=== PATIENT | female | born 1950 | race American Indian/Alaskan Native ===

== ENCOUNTER 2019-05-19 07:14 | Day surgery (SDC) | payer MEDICARE ==
[2019-05-19] MEDS ORDERED: ECOTRIN PO NR (08:01)
[2019-05-19 08:49] LABS: Basophils % (Auto) 0.6 % (0.0-1.8); Eosinophils # (Auto) 0.2 K/mm3 (0.0-0.4); Eosinophils % (Auto) 3.4 % (0.0-4.3); Hematocrit 38.5 % (30.3-42.9); Hemoglobin 13.5 gm/dl (10.1-14.3); Lymphocytes % (Auto) 30.3 % (13.4-35.0); Mean Corpuscular HGB Conc 35 % (30-34); Mean Corpuscular Volume 95 fl (79-97); Monocytes # (Auto) 0.6 K/mm3 (0.0-0.8); Monocytes % (Auto) 8.9 % (0.0-7.3); Platelet Count 264 K/mm3 (140-440); Red Blood Count 4.06 M/mm3 (3.65-5.03); Red Cell Distribution Width 13.1 % (13.2-15.2)
[2019-05-19] MEDS ORDERED: NACL 0.9% 500 ML 500 ML IV SCH (09:00)
[2019-05-19 09:02] LABS: INR 1.04 (0.87-1.13)
[2019-05-19 09:17] LABS: BUN/Creatinine Ratio TNR; Blood Urea Nitrogen TNR mg/dL (7-17); Calcium TNR mg/dL (8.4-10.2); Hemolysis Index TNR
[2019-05-19] MEDS ORDERED: HEPARIN 10,000 UNITS/10 ML ONE (09:31)
[2019-05-19] MEDS ORDERED: HEPARIN/NS 5000 UNIT/500ML(CATH LAB) 1,000 ML IR ONE (09:31)
[2019-05-19] MEDS ORDERED: NITROGLYCERIN SYRINGE 3 ML ONE (09:32)
[2019-05-19] MEDS ORDERED: CALAN ONE (09:32)
[2019-05-19 10:09] LABS: BUN/Creatinine Ratio 21; Blood Urea Nitrogen 15 mg/dL (7-17); Calcium 9.6 mg/dL (8.4-10.2); Hemolysis Index 51
[2019-05-19] MEDS: VERSED ONE ×2 (11:03→11:09)
[2019-05-19] MEDS: SUBLIMAZE ONE ×2 (11:03→11:09)
[2019-05-19] MEDS: XYLOCAINE 2% INFILTRATI ONE ×2 (11:04→11:12)
--- NOTE | 2019-05-19 12:19 | Cardiac Catherization Report ---
ATTENDING PHYSICIAN: Shreyas Fitzgerald M.D. PROCEDURES: 1. Left heart catheterization. 2. Left ventriculogram. COMPLICATIONS: None. ESTIMATED BLOOD LOSS: Less than 30 mL. ESTIMATED CONTRAST USED: 80 mL. SEDATION: IV conscious sedation with Versed and fentanyl. INDICATIONS FOR PROCEDURE: Unstable angina. PROCEDURE IN DETAIL: The patient was brought to the cardiac catheterization lab in usual fasting state. The patient was prepped and draped in the usual sterile fashion. A 2 mL of 1% lidocaine were injected around the right radial artery and a 6-Chadian sheath was placed into the right radial artery via modified Seldinger technique. The right radial artery was attempted to be used, but the vessels were unable to easily be wired to manipulate the catheters through. Therefore, the right radial access site was abandoned and right femoral arterial access was gained utilizing modified Seldinger technique. A 6-Chadian sheath was placed. Next, Truchas catheter was advanced over the wire into the left ventricle. Left ventricular pressures were measured. Left ventriculogram was performed via hand injection. Next, pullback pressure was measured across the aortic valve. The Truchas catheter was then engaged into the right coronary artery and angiography performed in multiple views. The Truchas catheter was then removed over the wire and the JL4 catheter was advanced over the wire and engaged into left main coronary artery and angiography performed in multiple views. The catheter was then removed over the wire and hemostasis was gained via manual compression. RESULTS: Left main coronary artery is a short, large caliber vessel with no significant disease. Left main coronary artery bifurcates into left anterior descending and left circumflex coronary arteries. The left anterior descending is a moderate caliber vessel that extends to the distal apex and gives off multiple small to moderate diagonal branches. There is heavy calcification in the left anterior descending coronary artery. The vessel, however, shows moderate diffuse disease throughout without significant stenosis. Left circumflex coronary artery is a moderate caliber codominant vessel giving off 3 moderate caliber obtuse marginal vessels. The left circumflex coronary artery shows mild calcification in the proximal aspect. There is mild diffuse disease throughout the left circumflex coronary system without significant stenosis. The right coronary artery is a moderate caliber codominant vessel with heavy calcification in the proximal, mid, and distal segments. There is [id number] diffuse disease throughout the right coronary artery without significant stenosis. The right coronary artery bifurcates into the posterolateral and posterior descending coronary arteries. The posterior descending coronary artery is a moderate caliber vessel that quickly tapers to a small caliber vessel and shows luminal irregularities without significant stenosis. The posterolateral branch is a small caliber vessel that shows luminal irregularities throughout. There is a 70-80% stenosis in the distal aspect, which is too small for intervention. CONCLUSIONS: No significant coronary artery disease in a codominant system. There is a 70-80% posterolateral branch stenosis, which is too small for intervention. The vessels show a moderate to heavy calcification. LEFT VENTRICULOGRAM: Left ventricular function is normal, shows an ejection fraction of 55-60%. Left ventricular end-diastolic pressure is 18. Left ventricular pressure is 157/18, aortic pressure is 157/72. RECOMMENDATIONS: Recommend maximal medical therapy for treatment of coronary artery disease and aggressive risk factor modification. JOB# [id number] /SAAD
[2019-05-19 15:03] VITALS: BP 128/57
== END 2019-05-19 16:03 | disposition home or self-care (01) ==
LOC: CATHLABREC 07:14
PROVIDERS: ATTEND Internal Medicine Cardiovascular Disease
DX: R07.9 Chest pain, unspecified (principal); R94.30 Abnormal result of cardiovascular function study, unspecified; I48.91 Unspecified atrial fibrillation; I10 Essential (primary) hypertension; M19.90 Unspecified osteoarthritis, unspecified site; G62.9 Polyneuropathy, unspecified; Z88.2 Allergy status to sulfonamides; Z79.82 Long term (current) use of aspirin; Z79.899 Other long term (current) drug therapy; Z90.710 Acquired absence of both cervix and uterus; Z88.8 Allergy status to other drugs, medicaments and biological substances; Z79.84 Long term (current) use of oral hypoglycemic drugs; Z98.49 Cataract extraction status, unspecified eye; Z98.890 Other specified postprocedural states
CPT/HCPCS: 36415; 80048; 85025; 85610; 85730; 93005; 93010; 93458; 99156; 99157; C1887; C1894; J1644; J2250; J3010; J7040; Q9967